=== PATIENT | male | born 1975 | race Caucasian/White ===

== ENCOUNTER 2023-02-08 13:33 | Emergency (ER) | payer OTHER, SELFPAY ==
[2023-02-08 13:49] VITALS: BP 141/81; PULSE 84; RESP 20; TEMP 35.9; O2SAT 99
--- NOTE | 2023-02-08 14:17 | ED.URI ---
HPI - URI/Sore Throat General Chief Complaint: Upper Respiratory Infection Stated Complaint: covid symptoms Time Seen by Provider: 02/08/23 14:09 Source: patient and RN notes reviewed Mode of arrival: ambulatory Limitations: no limitations History of Present Illness HPI Narrative: Patient presents today complaining of 3 day history of fatigue, intermittent sore throat, cough, sweats. Denies fever shortness of breath. [facility] to [facility] requesting a COVID 19 PCR test, required by his work. He has not tried any [id number] medication for symptoms prior to arrival. He has not been vaccinated against COVID-19. No history of asthma or COPD. Related Data Home Medications Medication Instructions Recorded Confirmed No Home Medications 02/08/23 02/08/23 Allergies Allergy/AdvReac Type Severity Reaction Status Date / Time silver sulfadiazine Allergy Mild Rash Verified 02/08/23 14:21 [From [place]] Review of Systems Review of Systems: CONSTITUTIONAL: Denies body aches, fever, chills.+ sweats, fatigue EYES: Denies visual changes, redness, or discharge. ENT: Denies rhinorrhea, congestion, or otalgia.+ sore throat CARDIOVASCULAR: Denies chest pain, palpitations, or edema. RESPIRATORY: Denies dyspnea.+ cough GASTROINTESTINAL: Denies abdominal pain, nausea, vomiting, or diarrhea. GENITOURINARY: Denies dysuria or hematuria. SKIN: Denies rash, itching, or wounds. MUSCULOSKELETAL: Denies back pain, joint pain, or myalgia. NEUROLOGIC: Denies headache, numbness, tingling, or weakness. PSYCH: Denies depression or anxiety. PMFSH Comments At time of signature, I have reviewed and agree with nursing past medical, surgical, social and family history unless otherwise noted. Please see nursing chart for further information. There is no relevant family history pertinent to the presenting complaint Exam Narrative: GENERAL: Mildly ill-appearing, well-nourished, and in no acute distress. HEAD: Normocephalic, atraumatic. EYES: EOMI. No redness or drainage. Conjunctivae normal. ENT: Mucous membranes pink and moist. Nares congested with rhinorrhea. TMs normal bilaterally. Throat normal. Uvula midline. NECK: Normal AROM. Supple. No lymphadenopathy. CHEST: No respiratory distress. Clear to auscultation. HEART: Regular rate and rhythm. No murmur appreciated. Normal peripheral pulses. EXTREMITIES: Normal range of motion. No edema. SKIN: Warm, dry, no rash. Capillary refill normal. Normal skin turgor. NEURO: No focal deficits. Alert and oriented x3. Gait steady. PSYCH: Normal affect. No signs of depression or anxiety. Course Course Level of Care: [facility] Visit Vital Signs Vital signs: Vital Signs Temperature 96.7 F L 02/08/23 13:49 Pulse Rate 84 02/08/23 13:49 Respiratory Rate 20 02/08/23 13:49 Blood Pressure 141/81 H 02/08/23 13:49 Pulse Oximetry 99 02/08/23 13:49 Oxygen Delivery Room Air 02/08/23 13:49 Temperature 96.7 F L 02/08/23 13:49 Pulse Rate 84 02/08/23 13:49 Respiratory Rate 20 02/08/23 13:49 Blood Pressure 141/81 H 02/08/23 13:49 Pulse Oximetry 99 02/08/23 13:49 Oxygen Delivery Room Air 02/08/23 13:49 Reviewed. Pt has been instructed to follow up with his PCP regarding his elevated blood pressure today. MDM - URI/Sore Throat MDM Narrative Medical decision making narrative: COVID-19 PCR swab obtained. Patient declines rapid COVID-19, or any further testing. Discussed [id number] treatment. No prescription medications indicated at this time. Anticipatory guidance given. Differential Diagnosis Differential diagnosis: Likely upper respiratory infection, sinusitis, viral infection, influenza, pharyngitis and other (COVID-19) Critical Care Time Critical Care Time Critical Care Time: No Discharge Plan Discharge Clinical Impression: Upper respiratory infection Qualifiers: URI type: unspecified URI Qualified Code(s): J06
[2023-02-08 19:27] LABS: SARS-CoV-2 RNA PCR Negative (Negative)
== END 2023-02-08 14:23 | disposition home or self-care (01) ==
PROVIDERS: Emergency Provider Nurse Practitioner
DX: J06.9 Acute upper respiratory infection, unspecified (principal); Z20.822 Contact with and (suspected) exposure to COVID-19
CPT/HCPCS: 87635; 99213; G0463